=== PATIENT | male | born 1955 ===

== ENCOUNTER 2020-01-09 07:03 | Outpatient (REF) | payer OTHER, SELFPAY | END 2020-01-09 07:04 | disposition home or self-care (01) | LOC: HO.LAB 07:03 | PROVIDERS: PCP Internal Medicine; Visit Provider Internal Medicine | DX: Z20.828 Contact with and (suspected) exposure to other viral communicable diseases (principal) | CPT/HCPCS: 36415; 87635 ==

== ENCOUNTER → 2020-01-27 14:39 | Outpatient (BNVA) | payer OTHER, SELFPAY | PROVIDERS: PCP Internal Medicine; Referring Provider Internal Medicine; Visit Provider Urology | DX: Z76.89 Persons encountering health services in other specified circumstances (principal) ==

== ENCOUNTER 2020-02-03 14:24 | Outpatient (REF) | payer OTHER, SELFPAY ==
--- NOTE | 2020-02-03 14:32 | XR_ITS ---
EXAMINATION: XR CHEST CLINICAL INFORMATION: Shortness of breath COMPARISON: Chest x-ray 05/08/2019 TECHNIQUE: 2 views of the chest were obtained. FINDINGS: No significant abnormality is noted involving the heart, lungs, mediastinum, bony thorax or soft tissues. XR/XR chest 2V IMPRESSION: Unremarkable examination.
[2020-02-03 16:39] LABS: MANUAL DIFF FLAG NO
[2020-02-03 16:44] LABS: Basophils Percent Auto 0.4 % (0-2); Eosinophils Absolute Auto 0.1 X10*3/uL (0.0-0.4); Eosinophils Percent Auto 1.2 % (0-4); Hematocrit 46.3 % (42-52); Imm Gran Abs Auto 0.01 X10*3/uL (0.00-0.03); Imm Gran Pct Auto 0.2 % (0.0-0.4); Lymphocytes Absolute Auto 1.3 X10*3/uL (1.2-4.9); Lymphocytes Percent Auto 22.5 % (20-40); Mean Corpuscular HGB Conc 34.6 g/dl (31.0-36.0); Mean Corpuscular Hemoglobin 32.5 pg (27.0-33.0); Mean Corpuscular Volume 93.9 fL (80-98); Mean Platelet Volume 11.6 fL (9.4-12.4); Monocytes Absolute Auto 0.5 X10*3/uL (0.1-1.2); Monocytes Percent Auto 8.5 % (2-11); Neutrophils Absolute Auto 3.8 X10*3/uL (2.0-8.3); Neutrophils Percent Auto 67.2 % (45-73); Platelet Count 216 X10*3/uL (160-400); Red Blood Count 4.93 X10*6/uL (4.60-5.80); Red Cell Distribution Width 12.5 % (11.0-16.0); White Blood Count 5.7 X10*3/uL (4.8-10.8)
[2020-02-03 16:52] LABS: D Dimer < 200 NG/ML
[2020-02-03 17:07] LABS: Anion Gap 12 (12-20); Blood Urea Nitrogen 15 mg/dL (9-16); Calcium 8.5 mg/dL (8.4-10.2); Carbon Dioxide 30 mmol/L (22-29); Chloride 101 mmol/L (96-108); Estimated Glomerular Filt Rate > 60; Glucose Random 75 mg/dL (60-115); Potassium 4.1 mmol/l (3.3-5.1); Sodium 139 mmol/L (135-145)
[2020-02-03 17:15] LABS: B Type Natriuretic Peptide 45 pg/mL (<100); Troponin-I High Sensitivity < 3.5 ng/L (<3.5-35.0)
== END 2020-02-03 14:25 | disposition home or self-care (01) ==
LOC: HO.HMGCX 14:24
PROVIDERS: PCP Internal Medicine; Visit Provider Nurse Practitioner Family
DX: R06.02 Shortness of breath (principal); R07.9 Chest pain, unspecified
CPT/HCPCS: 36415; 71046; 80048; 83880; 84484; 85025; 85379

== ENCOUNTER 2021-10-17 12:45 | Outpatient (REF) | payer OTHER, SELFPAY ==
[2021-10-19 18:12] LABS: Lyme Abs Screen <0.90 index
== END 2021-10-17 12:46 | disposition home or self-care (01) ==
LOC: HO.HMGCLDS 12:45
PROVIDERS: PCP Internal Medicine; Visit Provider Physician Assistant
DX: Z01.89 Encounter for other specified special examinations (principal)
CPT/HCPCS: 36415; 86617; 86618; 87798; 87801

== ENCOUNTER 2022-01-15 08:09 | Outpatient (REF) | payer OTHER, SELFPAY ==
[2022-01-15 11:16] LABS: MANUAL DIFF FLAG NO
[2022-01-15 11:24] LABS: Basophils Percent Auto 0.5 % (0-2); Eosinophils Absolute Auto 0.1 X10*3/uL (0.0-0.4); Eosinophils Percent Auto 2.2 % (0-4); Hematocrit 47.9 % (42.0-52.0); Hemoglobin 16.4 g/dl (14.0-18.0); Imm Gran Abs Auto 0.01 X10*3/uL (0.00-0.03); Imm Gran Pct Auto 0.2 % (0.0-0.4); Lymphocytes Absolute Auto 1.7 X10*3/uL (1.2-4.9); Lymphocytes Percent Auto 28.9 % (20-40); Mean Corpuscular HGB Conc 34.2 g/dl (31.0-36.0); Mean Corpuscular Hemoglobin 30.8 pg (27.0-33.0); Mean Corpuscular Volume 89.9 fL (80.0-98.0); Mean Platelet Volume 11.4 fL (9.4-12.4); Monocytes Absolute Auto 0.6 X10*3/uL (0.1-1.2); Monocytes Percent Auto 9.5 % (2-11); Neutrophils Absolute Auto 3.5 x10*3/uL (2.0-8.3); Neutrophils Percent Auto 58.7 % (45-73); Platelet Count 209 X10*3/uL (160-400); Red Blood Count 5.33 X10*6/uL (4.60-5.80)
[2022-01-15 11:51] LABS: Alanine Aminotransferase 13 U/L (0-40); Alkaline Phosphatase 74 U/L (39-117); Anion Gap 13 (12-20); Aspartate Amino Transferase 18 U/L (5-37); Bilirubin Total 0.9 mg/dL (0.0-1.0); Blood Urea Nitrogen 15 mg/dL (9-16); Calcium 9.3 mg/dL (8.4-10.2); Carbon Dioxide 27 mmol/L (22-29); Chloride 107 mmol/L (96-108); Cholesterol 139 mg/dL; Estimated Glomerular Filt Rate > 60; Glucose Fasting 87 mg/dL (60-99); HDL Cholesterol 38 mg/dL; LDL Cholesterol Calculated 85 mg/dl; Potassium 4.2 mmol/L (3.3-5.1); Sodium 143 mmol/L (135-145); Total Protein 6.6 g/dL (6.5-8.0); Triglycerides 82 mg/dL
[2022-01-15 12:01] LABS: Erythrocyte Sedimentation Rate 1 MM/HR (0-15)
[2022-01-15 12:24] LABS: PSA,Total (Free>4and<10) 1.89 ng/mL (0.00-4.00)
== END 2022-01-15 08:10 | disposition home or self-care (01) ==
LOC: HO.HMGCLDS 08:09
PROVIDERS: PCP Internal Medicine; Visit Provider Internal Medicine
DX: Z00.00 Encounter for general adult medical examination without abnormal findings (principal); Z12.5 Encounter for screening for malignant neoplasm of prostate
CPT/HCPCS: 36415; 80053; 80061; 84153; 85025; 85652

== ENCOUNTER 2022-03-23 16:11 | Outpatient (REF) | payer OTHER, SELFPAY ==
--- NOTE | ~2022-03-23 | XR_ITS ---
EXAMINATION: XR hand wrist RT CLINICAL INFORMATION: Reason for Exam M25.539 - Pain in unspecified wrist COMPARISON: None. TECHNIQUE: 3 views right hand FINDINGS: Small bone fragment along the dorsal margin of the triquetrum on the lateral view consistent with triquetral avulsion fracture, exact acuity uncertain though possibly acute. No additional fracture or dislocation. Joint spaces the wrist are maintained. Mild joint space narrowing with mild subchondral cystic change and osteophyte formation at the third MCP joint. A small rounded radiolucency likely a small cyst is noted at the radial aspect of the second DIP joint as well with preserved joint space. No chondrocalcinosis or erosions. Mild soft tissue swelling about the dorsal hand and wrist. XR/XR hand wrist RT IMPRESSION: 1. Small bone fragment along the dorsal margin of the triquetrum consistent with a triquetral avulsion fracture, exact acuity uncertain though possibly acute. Correlate with focal tenderness at this location. 2. No additional fracture or dislocation.
== END 2022-03-23 16:12 | disposition home or self-care (01) ==
LOC: HO.HMGCX 16:11
PROVIDERS: PCP Internal Medicine; Visit Provider Physician Assistant
DX: M79.641 Pain in right hand (principal); M25.531 Pain in right wrist
CPT/HCPCS: 73110; 73130

== ENCOUNTER → 2022-03-26 14:24 | Outpatient (BNVA) | payer OTHER, SELFPAY | PROVIDERS: PCP Internal Medicine; Visit Provider Physician Assistant | DX: S62.111A Displaced fracture of triquetrum [cuneiform] bone, right wrist, initial encounter for closed fracture (principal) | CPT/HCPCS: 99202 ==

== ENCOUNTER 2022-04-10 12:14 | Outpatient (REF) | payer OTHER, SELFPAY ==
--- NOTE | ~2022-04-10 | XR_ITS ---
EXAMINATION: XR WRIST, RIGHT CLINICAL INFORMATION: Pain in the right wrist COMPARISON: None TECHNIQUE: PA, lateral, and oblique views of the right wrist. FINDINGS: Again noted is a small ossific fragment posterior to the dorsal aspect of the triquetrum unchanged compared to prior. Remaining bones joints and soft tissues unremarkable. XR/XR wrist RT min 3V IMPRESSION: Small ossific fragment posterior to the triquetrum unchanged compared to prior. This could reflect a small avulsion fracture of indeterminate age.
== END 2022-04-10 12:15 | disposition home or self-care (01) ==
LOC: HO.HOSX 12:14
PROVIDERS: PCP Internal Medicine; Visit Provider Orthopaedic Surgery
DX: S62.111A Displaced fracture of triquetrum [cuneiform] bone, right wrist, initial encounter for closed fracture (principal)
CPT/HCPCS: 73110; 99212

== ENCOUNTER → 2022-05-11 12:38 | Outpatient (BNVA) | payer OTHER, SELFPAY | PROVIDERS: PCP Internal Medicine; Visit Provider Physician Assistant | DX: Z13.89 Encounter for screening for other disorder (principal) ==

== ENCOUNTER 2022-06-28 14:30 | Outpatient (RCR) | payer OTHER, SELFPAY ==
--- NOTE | 2022-05-31 14:07 | MHC.OT.EP ---
[address] [phone] Occupational Therapy Plan of Care Date of Evaluation: 05/31/22 Diagnosis: Right triquetral fx Pain Location: Right mid-dorsal carpal pain Mild w/ weightbearing Pain Score: 2 Pain Scale Used: Aggravating Factors: weightbearing Alleviating Factors: none used Assessment: 66 yo right hand dominant male presents just over 10 weeks s/p fall on ice w/ resulting right triquetral fx. He was placed in brace and on follow up w/ Dr Olivo, advised to wear brace only for heavy activity, but otherwise clear for active range and light use of hand/wrist. He has done fairly well since then, had slightly decreased wrist range on follow up appt and has been referred to OT. Today on assessment, he has limited wrist flex and ext by about 10 degrees each direction and slightly impaired gross grasp (68lb vs 75lb on left) but primarily states he is having difficulty w/ weightbearing (for yoga and weight lifting) and playing the piano w/ speed and accuracy. He will benefit from brief course of OT for progression of range and strength w/ coordination and speed training for piano playing. Frequency and Duration: The patient will be seen 1x/wk for 3 weeks Short Term Goals: Right Gross Grasp >75lb Right wrist flex/ext WFL per left side Pt to report ease w/ moderate piano pieces Pt to report ease w/ piano repair work Pt to progress to downward dog yoga position w/ ease of weightbearing Treatment Plan: Therapeutic Exercise Therapeutic Activity Home Exercise Program Patient Education Edema Control ADL Training Ultrasound Paraffin Fluidotherapy MHP Cold Packs Soft Tissue Mobilization Kinesiotaping Electronically Signed By: Atiya Dupree OTR/L CHT Please Sign and return to therapist. Thank you once again for your referral.
--- NOTE | 2022-06-28 15:32 | MHC.OT.DC ---
[address] [phone] F: [phone] Occupational Therapy Discharge Note Patient Name: David Hathaway Provider: Luther Vences Diagnosis: Triquetral fx Date of Surgery: Date of Evaluation: 05/31/22 Date of Discharge: 06/28/22 Treatments to Date: 4 Cancellations to Date: No Shows to Date: Discharge Status: Achieved Goals Improved Function Independent with HEP Discharge Summary: Pt progressed himself from light activity to mod heavy with working on piano, home gym and modified Yoga exercises Good inc in wrist extension to 65 deg [employer] on right 60 lb left 65 lb Pt is indep with self management. He is not available for OT over the next two weeks I anticipate continued improvement in activity and exercise tolerance with his HEP without complications. Electronically Signed By: Giselle Gupta OT CHT CLT Reviewed/agree with student documentation: Therapist: Please Sign and return to therapist, thank you for your referral.
== END 2022-06-28 15:35 | disposition home or self-care (01) ==
LOC: HO.OT 14:30
PROVIDERS: PCP Internal Medicine; Visit Provider Physician Assistant
DX: S62.113D Displaced fracture of triquetrum [cuneiform] bone, unspecified wrist, subsequent encounter for fracture with routine healing (principal)
CPT/HCPCS: 97110; 97140; 97165

== ENCOUNTER 2023-01-02 10:19 | Outpatient (AMB) | payer MEDICARE, SELFPAY ==
[2023-01-02 10:34] VITALS: BP 118/74; PULSE 78; O2SAT 97; BMI 20.9
--- NOTE | 2023-01-02 10:34 | MHC.PC.OV ---
Vital Signs 01/02/23 10:34 Height 6 ft 2 in Weight 163 lb BMI 20.9 BP 118/74 Blood Pressure Location Lt brachial Position Sitting Pulse 78 Pulse Source Pulse Oximeter Pulse Oximetry (%) 97 Oxygen Delivery Method Room Air Intake Visit Reasons: PE Intake Note: Pt is here today for PE. Allergies No Known Allergies [No Known Allergies*] Allergy (Verified 01/02/23 10:36) Medication List - Last Reconciled 01/02/23 by Nena Walters MD No Known Home Meds Tobacco use date assessed: 01/02/23 Fall risk assessment: 1 Fall in past year Last assessed Fall Risk: 01/02/23 Dental Screening Dental Screen Date: 01/02/23 Did you have a dental visit in the last 12 months?: Yes Did you have a dental problem in the last 6 months where you did not have access to dental care?: No Was dental information given to patient?: Patient has dentist HPI PE HPI Details Pt presents for PE. Pt c/o L flank pain on and off for a few months. Pt has a history of nephrolithiasis 5 years. Pt c/o L side upper chest constriction ache worse for 1 year but had since 1998. The pain is worse when patient is trying to jog more intensely, but is present all the time. The pain is positional worse when laying on the left side. Patient denies cough or shortness of breath .night sweats or weight loss. Patient had negative stress test 10 years ago. [facility] Medical History Annual physical exam Anxiety Left nephrolithiasis Family History Father No problems noted. Mother No problems noted. Social History (Updated 01/02/23 @ 11:29 by Nena Walters MD) Household Members Other:: single, Housing: House Patient Tobacco Use Status: Never used Tobacco e-Cigarette/Vaping Use: Never Used Current occupational status: employed Current occupation: sale musical insruments/ rt hand Cognitive needs: No Hearing needs: No Vision needs: Yes Questionnaire Thrive Questionnaire Date Thrive assessed: 12/19/21 AUDIT C Alcohol Use Questionnaire (AUDIT-C) 1. How often do you have a drink containing alcohol?: Never 3. How often do you have six or more drinks on one occasion?: Never Total Score: 0 ABBIE-7 AMB Questionnaire ABBIE-7 Date ABBIE - 7 assessed: 12/19/21 Source: Developed by Drs. Neftali Vazquez, Ela Lynch, Juan Bermudez and colleagues, with an educational roe from [employer]. Review of Systems Const All systems reviewed & are unremarkable except as noted in HPI and below Reports no additional complaints Eyes Reports no additional complaints ENT Reports no additional complaints Card Reports no additional complaints Resp Reports no additional complaints GI Reports no additional complaints Reports no additional complaints Musc Reports no additional complaints Physical exam (Primary Care) Vital Signs: Last Vital Signs Pulse 78 01/02/23 10:34 BP 118/74 01/02/23 10:34 Pulse Ox 97 01/02/23 10:34 Oxygen Delivery Method Room Air 01/02/23 10:34 BMI result Body Mass Index 20.9 Tobacco/Smoking Status: Tobacco use Status Tobacco use date assessed 01/02/23 01/02/23 10:40 Patient Tobacco Use Status Never used Tobacco 01/02/23 10:40 e-Cigarette/Vaping Use Never Used 01/02/23 10:40 Thrive Assessment: Date of Thrive Assessment Date Thrive assessed 12/19/21 01/02/23 10:40 Const General: no acute distress HENMT Head: Yes normal to inspection Ears: hearing grossly normal bilaterally Face and sinus: Yes normal facial exam Eyes General: appearance normal, both eyes and all related structures Resp Effort & Inspection: normal respiratory effort Auscultation: clear to auscultation bilaterally Cardio Rhythm: regular rhythm Heart sounds: S1 normal heart sound present and S2 normal heart sound present GI Inspection: Yes normal to inspection Palpation (GI): Soft to palpation Percussion: Yes normal to percussion Auscultation: normal bowel sounds Assessment and Plan Assessment & Plan (1) Bilateral nephrolithiasis: Code(s): N20.0 - Calculus of kidney Plan: check renal US (2) Annual physical exam: Code(s): Z00.00 - Encounter for general adult medical examination without abnormal findings Plan: well balanced diet, regular exercise, return for fasting labs (3) Shortness of breath: Code(s): R06.02 - Shortness of breath Plan: check CXR and Echo (4) Chest pain: Code(s): R07.9 - Chest pain, unspecified Qualifiers: Chest pain type: unspecified Qualified Code(s): R07.9 - Chest pain, unspecified Plan: check stress test to r/o ischemia, f/u after tests Orders: Orders US renal BI Today N20.0 - Calculus of kidney Comprehensive [place]. Panel Fast Today Z00.00 - Encounter for general adult medical examination without abnormal findings Complete Blood Count Auto Diff Today Z00.00 - Encounter for general adult medical examination without abnormal findings UA w Microscopic Today Z00.00 - Encounter for general adult medical examination without abnormal findings CA stress test Today R06.02 - Shortness of breath, R07.9 - Chest pain, unspecified XR chest 2V Today R06.02 - Shortness of breath, R07.9 - Chest pain, unspecified Lipid Panel Today Z00.00 - Encounter for general adult medical examination without abnormal findings Lipoprotein A Today Z00.00 - Encounter for general adult medical examination without abnormal findings PSA,Total (Free>4and<10) Today Z00.00 - Encounter for general adult medical examination without abnormal findings CA echo transthoracic complete Today R06.02 - Shortness of breath, R07.9 - Chest pain, unspecified Coding Level of Care Code Est Pt Prev Care >65y(65678) Diagnoses Bilateral nephrolithiasis N20.0 Annual physical exam Z00.00 Shortness of breath R06.02 Chest pain, unspecified type R07.9 Chest pain type: unspecified
== END 2023-01-02 11:35 | disposition home or self-care (01) ==
PROVIDERS: PCP Internal Medicine; Visit Provider Internal Medicine
DX: Z00.00 Encounter for general adult medical examination without abnormal findings (principal); N20.0 Calculus of kidney; R06.02 Shortness of breath; R07.9 Chest pain, unspecified
CPT/HCPCS: 99397

== ENCOUNTER 2023-01-02 11:36 | Outpatient (REF) | payer MEDICARE, SELFPAY ==
--- NOTE | ~2023-01-02 | XR_ITS ---
EXAMINATION: XR CHEST CLINICAL INFORMATION: Shortness of breath. COMPARISON: 02/03/2020 TECHNIQUE: 2 views of the chest were obtained. FINDINGS: The lungs are well expanded. No focal consolidation. No pleural effusion. Cardiac silhouette is within normal limits. XR/XR chest 2V IMPRESSION: No acute abnormality.
== END 2023-01-02 11:37 | disposition home or self-care (01) ==
LOC: HO.HMGCX 11:36
PROVIDERS: PCP Internal Medicine; Visit Provider Internal Medicine
DX: R07.9 Chest pain, unspecified (principal); R06.02 Shortness of breath
CPT/HCPCS: 71046

== ENCOUNTER → 2023-02-01 06:02 | Outpatient (REF) | payer OTHER, SELFPAY ==
[2023-02-01 06:12] LABS: MANUAL DIFF FLAG NO
[2023-02-01 07:17] LABS: Basophils Percent Auto 0.5 % (0-2); Eosinophils Absolute Auto 0.1 X10*3/uL (0.0-0.4); Eosinophils Percent Auto 1.3 % (0-4); Hematocrit 47.7 % (42.0-52.0); Hemoglobin 16.5 g/dl (14.0-18.0); Imm Gran Abs Auto 0.02 X10*3/uL (0.00-0.03); Imm Gran Pct Auto 0.3 % (0.0-0.4); Lymphocytes Absolute Auto 1.9 X10*3/uL (1.2-4.9); Mean Corpuscular HGB Conc 34.6 g/dl (31.0-36.0); Mean Corpuscular Hemoglobin 30.8 pg (27.0-33.0); Mean Corpuscular Volume 89.2 fL (80.0-98.0); Mean Platelet Volume 10.6 fL (9.4-12.4); Monocytes Absolute Auto 0.8 X10*3/uL (0.1-1.2); Neutrophils Absolute Auto 4.7 x10*3/uL (2.0-8.3); Neutrophils Percent Auto 61.9 % (45-73); Platelet Count 219 X10*3/uL (160-400); Red Blood Count 5.35 X10*6/uL (4.60-5.80); Red Cell Distribution Width 12.9 % (11.0-16.0); White Blood Count 7.5 X10*3/uL (4.8-10.8)
--- NOTE | 2023-02-01 07:37 | CA_ITS ---
Transthoracic Echocardiogram Patient (Last, First, Middle): David Hathaway, Gender: Male Date of : 1955 Age: 67 Procedure Date: 02/01/2023 Procedure Type: Transthoracic Echocardiogram Location: OP Height: 187.96 cm Weight: 71.67 kg BSA: 1.97 m2 Heart Rate: bpm BP: 110 / 72 mmHg Lpn Instructor: TO Referring MD: Nena Walters MD Wan Support Specialist: Bebo Gee MD Symptoms: R06.02 - Shortness of breath Study Quality: Fair ECG Rhythm: Sinus Conclusions: - Essentially normal study Findings Left Ventricle Normal left ventricular size, thickness, and systolic function. The visually estimated ejection fraction is between 60-65%. Spectral Doppler is indicative of a normal filling pattern. Right Ventricle Normal right ventricular cavity size and systolic function. Atria Both atria are normal in size. There is no evidence of interatrial shunt. Aortic Valve Normal aortic valve structure and function. There is no aortic valve stenosis. There is no aortic valve regurgitation. Mitral Valve Normal mitral valve structure and function. There is trace mitral valve regurgitation. There is no mitral valve stenosis. Pulmonic Valve The pulmonic valve is likely normal. Tricuspid Valve Normal tricuspid valve structure. Tricuspid regurgitation envelope is inadequate for calculation of right ventricular systolic pressure. Normal right atrial pressure. Great Vessels All visible segments of the aorta are normal in size. The pulmonary artery was not well visualized. Venous The inferior vena cava is normal in size and collapses greater than 50% with inspiration. Pericardium/Pleural There is no evidence of pericardial effusion. Prior Study Comparison No significant change compared to prior study dated: 07/25/2016. Measurements 2D Linear Measurements IVSd: 0.91 0.6-0.9/0.6-1.0 cm LVIDd: 4.27 3.9-5.3/4.2-5.9 cm LVIDd Index: 2.17 2.4-3.2/2.2-3.1 cm/m2 LVIDs: 3.03 2.0-3.6 cm LVPWd: 0.76 0.7-1.1 cm LA Diam: 2.50 2.7-3.8/3.0-4.0 cm LAIDs Index: 1.27 1.5-2.3 cm/m2 LV Mass: 137.11 67-162/88-224 g LV Mass Index: 69.60 43-95/49-115 g/m2 LVOT Diam: 2.10 3.0+(-)1.3 cm 2D Systolic Function EF 4C: 61.20 >55% EF 2C: 62.30 >55% EF BiP: 62.00 >55% Mitral Valve MV Pk E: 0.54 MV PK A: 0.33 MV Decel Time: 264.00 E/A: 1.60 E'Lateral: 10.60 E'Medial: 9.25 E/E' Med: 5.90 E/E' Lat: 5.10 PHT: 77.00 MVA PHT: 2.[address] [place]: 2.06 Aortic Valve AoV Pk [place]: 0.96 AoV Mn Randolph: 0.67 AoV VTI: 0.21 AoV Pk Grad: 4.00 Aov Mn Grad: 2.00 MICHELLE Cont.VTI: 3.10 LVOT LVOT Pk [place]: 0.99 LVOT Mn Randolph: 0.65 LVOT VTI: 0.19 LVOT Pk Grad: 4.00 LVOT Mn Grad: 2.00 LVOT Diam: 2.10 LVOT Area: 3.46 Diastolic Function MV Pk E: 0.54 MV Pk A: 0.33 E/A: 1.60 E'Medial: 9.25 E/E' Med: 5.90 E' Laterial: 10.60 E/E' Lat: 5.10 Right Ventricle TAPSE (mm): 23.20 TVS' Randolph: 10.60 Tricuspid Valve RA Press: 3.00 Great Vessels Aorta Sinus of Valsalva: 3.15 2.0-3.5 cm Ao Asc: 3.00 2.1-3.4 cm Updated in Other Vendor System with Status of Final Bebo Gee MD electronically signed on 02/02/2023 10:03:47 AM with status of Final
--- NOTE | 2023-02-01 07:37 | CA_ITS ---
Acquisition Time: 2023-02-01 09:05:46 Total Exercise Time: 00:11:00 Test Indications: CP, SOB Medications: SEE H Protocol: TAZ Max HR: 166 BPM 107% of Pred: 155 BPM Max BP: 126/068 mmHG Max Work Load: 13.4 METS Exercise stress test with exercise 11 min of Taz protocol, with 1-2/10 left chest discomfort at baseline ( which is always present) which did not change with exercise, with isolated PACs and PVCs, with normotensive response to exercise, without EKG changes meeting criteria for ischemia. Test reviewed with Dr Gee Referred By: Nena Walters Overread By: HARVEY MICHELLE
[2023-02-01 07:56] LABS: Alanine Aminotransferase 13 U/L (0-40); Albumin Level 4.1 g/dL (3.5-5.0); Alkaline Phosphatase 69 U/L (39-117); Anion Gap 11 (12-20); Aspartate Amino Transferase 18 U/L (5-37); Bilirubin Total 0.8 mg/dL (0.0-1.0); Blood Urea Nitrogen 20 mg/dL (9-16); Calcium 9.6 mg/dL (8.4-10.2); Carbon Dioxide 28 mmol/L (22-29); Chloride 106 mmol/L (96-108); Cholesterol 121 mg/dL (<200); Estimated Glomerular Filt Rate > 60; Glucose Fasting 81 mg/dL (60-99); HDL Cholesterol 41 mg/dL (>40); LDL Cholesterol Calculated 68 mg/dL (<100); Potassium 3.9 mmol/L (3.3-5.1); Sodium 141 mmol/L (135-145); Triglycerides 62 mg/dL (<150)
[2023-02-01 08:07] LABS: PSA,Total (Free>4and<10) 2.53 ng/mL (0.00-4.00)
[2023-02-01 08:29] LABS: Appearance Urine Clear; Color Urine Yellow; Glucose Urine UA Negative (Negative); Leukocyte Esterase Urine Negative (Negative); Nitrite Urine Negative (Negative); PH 6.5 (5.0-9.0); Urine Blood Negative (Negative); Urine Ketones Negative (Negative); Urine Protein Negative (Neg-Trace)
[2023-02-01 08:32] LABS: Bacteria Urine None Seen (None Seen); Hyaline Casts Urine 0-2 /LPF (0-2); RBC Urine 0-2 /HPF (0-2); Squamous Epithelial Cell Urine 0-2 /HPF (0-2); WBC Urine 0-5 /HPF (0-5)
[2023-02-06 07:47] LABS: Lipoprotein A 34 nmol/L (<75)
== END ==
LOC: HO.CARD 06:02
PROVIDERS: PCP Internal Medicine; Visit Provider Internal Medicine
DX: R07.9 Chest pain, unspecified (principal); R06.02 Shortness of breath; N20.0 Calculus of kidney; Z00.00 Encounter for general adult medical examination without abnormal findings; Z12.5 Encounter for screening for malignant neoplasm of prostate
CPT/HCPCS: 36415; 80053; 80061; 81001; 83695; 84153; 85025; 93017; 93306

== ENCOUNTER → 2023-02-01 07:37 | Outpatient (BNV) | payer OTHER, SELFPAY | PROVIDERS: PCP Internal Medicine; Visit Provider Nurse Practitioner Family | DX: R06.02 Shortness of breath (principal); R07.9 Chest pain, unspecified | CPT/HCPCS: 93016; 93018; 93306 ==

== ENCOUNTER 2023-10-16 09:14 | Outpatient (AMB) | payer OTHER, SELFPAY ==
[2023-10-16 09:16] VITALS: BP 122/74; PULSE 76; TEMP 36.6; O2SAT 97; BMI 21.4
--- NOTE | 2023-10-16 09:16 | AM.OFFWIN_ITS ---
Intake Vital Signs 10/16/23 09:16 Height 6 ft 2 in Weight 166 lb 8 oz BMI 21.4 BP 122/74 Blood Pressure Location Rt brachial Position Sitting Pulse 76 Pulse Source Pulse Oximeter Temp 97.9 F Temp Source Oral Pulse Oximetry (%) 97 Oxygen Delivery Method Room Air Intake Visit Reasons: EP hands tendon pain/lumps Intake Note: pt is here for tendon on hand, with pain and feels lumps Patient Tobacco Use Status: Never used Tobacco Allergies No Known Allergies [No Known Allergies*] Allergy (Verified 10/16/23 09:18) Do you need a note to return to daycare/school/sports/work: No HPI HPI Comments History of Present Illness Details Patient is a 67-year-old male complaining of bumps on his bilateral hands, he states the bumps have developed over the last few years and are getting worse, he states his left hand is worse than his right. He states they are not necessarily pain fall however he does have pain in his left 2nd 3rd and 4th PIP that comes and goes. He thought it was more of an arthritic pain but now he is thinking it could be connected to the bumps. He denies any loss of strength or sensation or use of his hands or fingers. [facility] Medical History Annual physical exam Anxiety Left nephrolithiasis Family History Father No problems noted. Mother No problems noted. Social History (Updated 01/02/23 @ 11:29 by Nena Walters MD) Household Members Other:: single, Housing: House Patient Tobacco Use Status: Never used Tobacco e-Cigarette/Vaping Use: Never Used Current occupational status: employed Current occupation: sale musical insruments/ rt hand Cognitive needs: No Hearing needs: No Vision needs: Yes Review of Systems Const All systems reviewed & are unremarkable except as noted in HPI and below Physical Exam Vital Signs: Last Vital Signs Temp 97.9 F 10/16/23 09:16 Pulse 76 10/16/23 09:16 BP 122/74 10/16/23 09:16 Pulse Ox 97 10/16/23 09:16 Oxygen Delivery Method Room Air 10/16/23 09:16 BMI result Body Mass Index 21.4 Const General: cooperative, healthy appearing, comfortable, no acute distress and well developed Orientation/consciousness: patient oriented x3 Limitations: no limitations HEENT Head: Yes normal to inspection Eyes General: appearance normal, both eyes and all related structures Neck Neck: Yes normal visual inspection and Yes full ROM Resp Effort & Inspection: normal respiratory effort and able to speak in complete sentences Skin General skin exam: no rashes or lesions noted Neuro General: patient oriented x3 Extrem Right upper extremity: Extremity exam: right hand (5/5 strength ) Details: abnormal to inspection Details: a deformity (nodules with raised tendons/cords on palmar aspect leading to these digits) Location: of the 2nd digit, of the 3rd digit and of the 4th digit, normal capillary refill, neuromotor exam normal, neurosensory exam normal, tendon exam normal, normal ROM of fingers and no swelling; no tenderness and no unusual warmth Left upper extremity: hand (5/5 strength) Details: abnormal to inspection, normal capillary refill, neuromotor exam normal, neurosensory exam normal, tendon exam normal, normal ROM of fingers and no swelling; no tenderness and no unusual warmth Assessment & Plan Assessment & Plan (1) Dupuytren contracture of both hands: Code(s): M72.0 - Palmar fascial fibromatosis [Dupuytren] Plan: Sent referral for hand surgeon/ortho Plan see above Orders: Referrals Orthopedics Referral M72.0 - Palmar fascial fibromatosis [Dupuytren] Coding Level of Care Code Est Pt Level 3 (69261) Diagnoses Dupuytren contracture of both hands M72.0
== END 2023-10-16 10:10 | disposition home or self-care (01) ==
PROVIDERS: PCP Internal Medicine; Visit Provider Physician Assistant
DX: M72.0 Palmar fascial fibromatosis [Dupuytren] (principal)
CPT/HCPCS: 99213

== ENCOUNTER 2023-11-12 12:49 | Outpatient (AMB) | payer OTHER, SELFPAY ==
[2023-11-12 12:55] VITALS: BMI 21.4
--- NOTE | 2023-11-12 12:55 | MHC.OFFVIS ---
Vital Signs 11/12/23 12:55 Height 6 ft 2 in Weight 166 lb 8 oz BMI 21.4 Intake Visit Reasons: New Pt - B/L palmar fascial fibromatosis Intake Note: David is a 68 yo - hand dominant male who presents today with a new problem of bilateral palmar fascial fibromatosis that he first noticed about one year ago. Patient denies numbness, tingling, and locking on fingers. Patient has bumps under the skin on both hands that have grown in size, causing finger pulling on the left 3rd, 4rth, and 5th digits. Allergies No Known Allergies [No Known Allergies*] Allergy (Verified 11/12/23 12:56) HPI HPI New Pt - B/L palmar fascial fibromatosis: Details: David is a 68 year old right hand dominant man who presents with complaints of bilateral hand masses, L>R. He complains of masses in his palms, in the left at the base of his middle & ring fingers, and at the base of his right middle finger. He says these have been present for ~1 year now, and cause him some pain with gripping activities. He denies any numbness, tingling, locking, or catching. [facility] Medical History Annual physical exam Anxiety Left nephrolithiasis Family History Father No problems noted. Mother No problems noted. Social History (Updated 01/02/23 @ 11:29 by Nena Walters MD) Household Members Other:: single, Housing: House Patient Tobacco Use Status: Never used Tobacco e-Cigarette/Vaping Use: Never Used Current occupational status: employed Current occupation: sale musical insruments/ rt hand Cognitive needs: No Hearing needs: No Vision needs: Yes Review of Systems Const All systems reviewed & are unremarkable except as noted in HPI and below Physical Exam Vital Signs: BMI result Body Mass Index 21.4 Const General: no acute distress and alert Orientation/consciousness: patient oriented x3 Neuro General: patient oriented x3 Extrem Other: Evaluation of Bilateral Upper Extremity: The patient is alert, oriented, and in no acute distress Neuro: Median, Ulnar, Radial nerves motor and sensory intact and sensation is normal to the tips of all digits Vascular: Cap refill brisk ROM: He can make a fist and extend all his digits He is able to place both his hands flat on the table No locking or catching Regarding the left hand: There are Dupuytrens nodules developing into cords in line with the middle & ring fingers. There is early development of a cords in the palm, which has not yet started to extend into the fingers In regards to the right hand There is a Dupuytrens nodule in line with the middle finger. no evidence of cord or contracture Psych Appearance: grossly normal Affect: normal affect Attitude: cooperative Assessment & Plan Assessment & Plan (1) Dupuytren's disease of palm of left hand: Code(s): M72.0 - Palmar fascial fibromatosis [Dupuytren] Category: Medical (2) Dupuytren's disease of palm of right hand: Code(s): M72.0 - Palmar fascial fibromatosis [Dupuytren] Category: Medical Plan Assessment & Plan: 1. Left hand Dupuytrens nodules In line with the middle & ring fingers with an early cord forming in the palm, not yet extending into the fingers No evidence of contractures 2. Right hand Dupuytrens nodule In line with the middle finger No evidence of cords of contractures I educated him about this condition No surgical intervention warranted at this time. There are no contractures and he is still able to place both his hands flat on a table surface without difficulty. I directed him to the [email or web address] website for more information If he develops any new cords or contractures he can follow up to discuss possible surgical treatment options Otherwise he can follow up prn Scribed for Genoveva Olivo MD by radha Hein scribe, on 11/12/23 at 1:20 PM, EST. Coding Level of Care Code Est Pt Level 4 (38866) Diagnoses Dupuytren's disease of palm of left hand M72.0 Dupuytren's disease of palm of right hand M72.0
== END 2023-11-12 13:28 | disposition home or self-care (01) ==
PROVIDERS: PCP Internal Medicine; Visit Provider Orthopaedic Surgery
DX: M72.0 Palmar fascial fibromatosis [Dupuytren] (principal)
CPT/HCPCS: 99214

== ENCOUNTER → 2023-11-12 12:49 | Outpatient (BNVA) | payer OTHER, SELFPAY | PROVIDERS: PCP Internal Medicine; Visit Provider Orthopaedic Surgery | DX: M72.0 Palmar fascial fibromatosis [Dupuytren] (principal) | CPT/HCPCS: 99212 ==

== ENCOUNTER 2023-12-30 08:01 | Outpatient (AMB) | payer OTHER, SELFPAY ==
[2023-12-30 08:03] VITALS: BP 104/72; PULSE 58; TEMP 36.4; O2SAT 98; BMI 20.4
--- NOTE | 2023-12-30 08:03 | MHC.OFFWIV ---
Intake Vital Signs 12/30/23 08:03 Height 6 ft 2 in Weight 159 lb BMI 20.4 BP 104/72 Blood Pressure Location Rt brachial Position Sitting Pulse 58 Pulse Source Pulse Oximeter Temp 97.5 F Temp Source Oral Pulse Oximetry (%) 98 Oxygen Delivery Method Room Air Intake Visit Reasons: EP-lt side hernia Intake Note: pt c/o ? hernia. LT lower abdomen/inguinal. Noticed last week Patient Tobacco Use Status: Never used Tobacco Allergies No Known Allergies [No Known Allergies*] Allergy (Verified 12/30/23 08:10) Do you need a note to return to daycare/school/sports/work: No HPI HPI Comments History of Present Illness Details Patient is a 68-year-old male complaining of what he thinks is a hernia and his left inguinal area. He states he noticed it about a week ago. He states it is not painful. He tells me that he works out every other day and he states he feels a weird pressure when he is working out and that has prohibited him from going to the gym since he noticed it. He does notice when he lays down it goes away and when he stands up it is more noticeable. [facility] Medical History Annual physical exam Anxiety Left nephrolithiasis Family History Father No problems noted. Mother No problems noted. Social History (Updated 01/02/23 @ 11:29 by Nena Walters MD) Household Members Other:: single, Housing: House Patient Tobacco Use Status: Never used Tobacco e-Cigarette/Vaping Use: Never Used Current occupational status: employed Current occupation: sale musical insruments/ rt hand Cognitive needs: No Hearing needs: No Vision needs: Yes Review of Systems Const All systems reviewed & are unremarkable except as noted in HPI and below Physical Exam Vital Signs: Last Vital Signs Temp 97.5 F 12/30/23 08:03 Pulse 58 12/30/23 08:03 BP 104/72 12/30/23 08:03 Pulse Ox 98 12/30/23 08:03 Oxygen Delivery Method Room Air 12/30/23 08:03 BMI result Body Mass Index 20.4 Const General: cooperative, healthy appearing, comfortable, no acute distress and well developed Orientation/consciousness: patient oriented x3 Limitations: no limitations HEENT Head: Yes normal to inspection Ears: hearing grossly normal bilaterally General nose exam: Normal external nose present Face and sinus: Yes normal facial exam Eyes General: appearance normal, both eyes and all related structures Neck Neck: Yes normal visual inspection and Yes full ROM Resp Effort & Inspection: normal respiratory effort and able to speak in complete sentences Male General Exam: Yes hernia (left inguinal, reducible ) Skin General skin exam: no rashes or lesions noted Neuro General: patient oriented x3 Extrem General: Yes normal to inspection Assessment & Plan Assessment & Plan (1) Reducible left inguinal hernia: Code(s): K40.90 - Unilateral inguinal hernia, without obstruction or gangrene, not specified as recurrent Plan: Discussed with patient that he would need further imaging to confirm the hernia, though physical exam was pretty demonstrative. Reviewed red flag warning signs and when to go to the emergency department. I did message his PCP to ask for a further workup to hopefully review at his upcoming physical on January 09. Did tell patient this is a tight timeline and he understands it may not get done in time. Plan See above Coding Level of Care Code Est Pt Level 3 (79043) Diagnoses Reducible left inguinal hernia K40.90
== END 2023-12-30 08:46 | disposition home or self-care (01) ==
PROVIDERS: PCP Internal Medicine; Visit Provider Physician Assistant
DX: K40.90 Unilateral inguinal hernia, without obstruction or gangrene, not specified as recurrent (principal)

== ENCOUNTER → 2023-12-30 08:01 | Outpatient (BNVA) | payer OTHER, SELFPAY | PROVIDERS: PCP Internal Medicine | DX: K40.90 Unilateral inguinal hernia, without obstruction or gangrene, not specified as recurrent (principal) | CPT/HCPCS: 99212 ==

== ENCOUNTER 2024-01-01 13:03 | Outpatient (REF) | payer OTHER, SELFPAY ==
--- NOTE | ~2024-01-01 | US_ITS ---
EXAMINATION: US APPENDIX, LIMITED/FOLLOW UP CLINICAL INFORMATION: Unilateral inguinal hernia, first noticed 2 weeks ago, nontender, feels pressure on exercising, more noticeable while standing, left lower quadrant pelvic pain to be scanned while standing. COMPARISON: None available. TECHNIQUE: Targeted ultrasound images were obtained by the integrated program teacher of the area of concern as indicated by the patient in the left lower quadrant, question hernia. Number integrated program teacher, images were obtained with patient in upright position in order to better visualize. Concern. Radiologist was not in attendance. Images were later provided for interpretation. FINDINGS: There is a possible hernia in the area of concern indicated by the patient in the left lower quadrant with orifice measuring 1.6 cm. Hernia best appreciated by integrated program teacher with patient in upright position employing graded compression. US/US pelvic limited IMPRESSION: Possible hernia in the area of concern indicated by the patient in the left lower quadrant with orifice measuring 1.[address] scan recommended for further evaluation. Electronically signed by: Deanna Shirley MD 01/07/2024 01:40 PM EDT
== END 2024-01-01 13:04 | disposition home or self-care (01) ==
LOC: HO.HMGCX 13:03
PROVIDERS: PCP Internal Medicine; Visit Provider Internal Medicine
DX: K40.90 Unilateral inguinal hernia, without obstruction or gangrene, not specified as recurrent (principal)
CPT/HCPCS: 76857

== ENCOUNTER 2024-01-10 11:25 | Outpatient (AMB) | payer OTHER, SELFPAY ==
--- NOTE | 2024-01-10 11:33 | MHC.PC.OV ---
Vital Signs 01/10/24 11:34 Height 6 ft 2 in Weight 160 lb BMI 20.5 BP 106/70 Blood Pressure Location Lt brachial Position Sitting Pulse 78 Pulse Source Pulse Oximeter Pulse Oximetry (%) 98 Oxygen Delivery Method Room Air Intake Visit Reasons: Annual PE Intake Note: Pt is here today for PE. Allergies No Known Allergies [No Known Allergies*] Allergy (Verified 01/10/24 11:38) Medication List - Last Reconciled 01/10/24 by Nena Walters MD No Known Home Meds Tobacco use date assessed: 01/10/24 Fall risk assessment: No Falls in past year Last assessed Fall Risk: 01/10/24 Dental Screening Dental Screen Date: 01/10/24 Did you have a dental visit in the last 12 months?: Yes Did you have a dental problem in the last 6 months where you did not have access to dental care?: No Was dental information given to patient?: Patient has dentist HPI Annual PE HPI Details Pt presents for PE. Pt c/o LLQ bulging and discomfort for 2 weeks after lifting weights at the gym. He had an ultrasound questioning inguinal hernia and has an appointment scheduled with the surgeon next week. Patient denies nausea vomiting change in bowel habits fever chills frequency PFSH Medical History (Updated 01/10/24 @ 12:20 by Nena Walters MD) Annual physical exam Anxiety Left nephrolithiasis Surgical History (Updated 01/10/24 @ 11:39 by Nehal Guillory [facility]) No pertinent past surgical history Family History Father No problems noted. Mother No problems noted. Social History (Updated 01/02/23 @ 11:29 by Nena Walters MD) Household Members Other:: single, Housing: House Patient Tobacco Use Status: Never used Tobacco e-Cigarette/Vaping Use: Never Used service: No Current occupational status: employed Current occupation: sale musical insruments/ rt hand Cognitive needs: No Hearing needs: No Vision needs: Yes Questionnaire PHQ-9 Over the last 2 weeks, how often have you been bothered by any of the following problems? 1. Little interest or pleasure in doing things: not at all 2. Feeling down, depressed, or hopeless: not at all 3. Trouble falling or staying asleep, or sleeping too much: not at all 4. Feeling tired or having little energy: not at all 5. Poor appetite or overeating: not at all 6. Feeling bad about yourself - or that you are a failure or have let yourself or your family down: not at all 7. Trouble concentrating on things, such as reading the newspaper or watching television: not at all 8. Moving or speaking so slowly that other people could have noticed. Or the opposite - being so fidgety or restless that you have been moving around a lot more than usual: not at all 9. Thoughts that you would be better off or of hurting yourself in some way: not at all Total score: 0 Depression Screening Interpretation: Negative Depression Screening Done: Yes 49888 - PHQ-9 Billing: Yes Source: Developed by Drs. Neftali Vazquez, Ela Lynch, Juan Bermudez and colleagues, with an educational roe from [employer]. Thrive Questionnaire Date Thrive assessed: 01/06/24 I am a: Patient What is your living situation today?: I have a steady place to live Within the past 12 months, did the food you bought not last and you didn't have the money to get more?: Often true Within the past 12 months, did you worry whether your food would run out before you got money to buy more?: Often true Do you have trouble paying for medicines?: No Do you have trouble getting transportation to medical appointments?: No Do you have trouble paying your heating and electricity bill?: No Do you have trouble taking care of your child, family member or friend?: No Do you have trouble with day-to-day activities such as bathing, preparing meals, shopping, managing finances, etc.?: No Are you interested in more education?: No Please select the resources that you would like help with: None Currently or been in a relationship where the following occur: No concerns reported THRIVE Score: 2 AUDIT C Alcohol Use Questionnaire (AUDIT-C) 1. How often do you have a drink containing alcohol?: Monthly or less 2. How many drinks containing alcohol do you have on a typical day when you are drinking?: 1 or 2 3. How often do you have six or more drinks on one occasion?: Never Total Score: 1 ABBIE-7 AMB Questionnaire ABBIE-7 Date ABBIE - 7 assessed: 12/19/21 Feeling nervous, anxious, or on edge: 1 = Several days Not being able to stop or control worryin = Not at all Worrying too much about different things: 0 = Not at all Trouble relaxin = Not at all Being so restless that it is hard to sit still: 0 = Not at all Becoming easily annoyed or irritable: 0 = Not at all Feeling afraid as if something awful might happen: 0 = Not at all Total ABBIE-7 score (0-4 normal; 5-9 mild; 10-14 moderate; 15-21 severe): 1 Source: Developed by Drs. Neftali Vazquez, Ela Lynch, Juan Bermudez and colleagues, with an educational roe from [employer]. Review of Systems Const All systems reviewed & are unremarkable except as noted in HPI and below Eyes Reports no additional complaints ENT Reports no additional complaints Card Reports no additional complaints Resp Reports no additional complaints GI Reports no additional complaints Reports no additional complaints Physical exam (Primary Care) Vital Signs: Last Vital Signs Pulse 78 01/10/24 11:34 BP 106/70 01/10/24 11:34 Pulse Ox 98 01/10/24 11:34 Oxygen Delivery Method Room Air 01/10/24 11:34 BMI result Body Mass Index 20.5 Tobacco/Smoking Status: Tobacco use Status Tobacco use date assessed 01/10/24 01/10/24 11:40 Patient Tobacco Use Status Never used Tobacco 01/10/24 11:35 e-Cigarette/Vaping Use Never Used 01/10/24 11:35 PHQ-9: PHQ-9 Score PHQ-9: Total score 0 01/10/24 12:17 Depression Screening Interpretation: Negative Thrive Assessment: Date of Thrive Assessment Date Thrive assessed 01/06/24 01/10/24 11:35 Currently or been in a relationship where the following occur: No concerns reported Const General: no acute distress HENMT Head: Yes normal to inspection Ears: hearing grossly normal bilaterally Face and sinus: Yes normal facial exam Mouth: Normal oral and palatal mucosa present Eyes General: appearance normal, both eyes and all related structures Neck Neck: Yes no lymphadenopathy and Yes supple Resp Effort & Inspection: normal respiratory effort Auscultation: clear to auscultation bilaterally Cardio Rhythm: regular rhythm Heart sounds: S1 normal heart sound present and S2 normal heart sound present GI Other: There is about 5 cm by 2 cm soft tissue bulge slightly tender reducible in left lower quadrant Inspection: Yes normal to inspection Palpation (GI): Soft to palpation Percussion: Yes normal to percussion Auscultation: normal bowel sounds Coding Level of Care Code Est Pt Prev Care >65y(03126) Diagnoses Colon cancer screening Z12.11 Annual physical exam Z00. Reducible left inguinal hernia K40.90 Assessment & Plan Assessment & Plan (1) Colon cancer screening: Comment: Cologuard 01/2022 Code(s): Z12.11 - Encounter for screening for malignant neoplasm of colon Category: Medical Plan: Negative Cologuard in 2021 (2) Annual physical exam: Code(s): Z. - Encounter for general adult medical examination without abnormal findings Category: Medical Plan: Well-balanced diet regular physical activity discussed with the patient. (3) Reducible left inguinal hernia: Code(s): K40.90 - Unilateral inguinal hernia, without obstruction or gangrene, not specified as recurrent Category: Medical Plan: Patient will follow-up with surgeon next week Orders: Orders Lipid Panel Today K40.90 - Unilateral inguinal hernia, without obstruction or gangrene, not specified as recurrent, Z00.00 - Encounter for general adult medical examination without abnormal findings Comprehensive Avis. Panel Fast Today K40.90 - Unilateral inguinal hernia, without obstruction or gangrene, not specified as recurrent, Z00.00 - Encounter for general adult medical examination without abnormal findings Complete Blood Count Auto Diff Today K40.90 - Unilateral inguinal hernia, without obstruction or gangrene, not specified as recurrent, Z00.00 - Encounter for general adult medical examination without abnormal findings UA w Microscopic Today K40.90 - Unilateral inguinal hernia, without obstruction or gangrene, not specified as recurrent, Z00.00 - Encounter for general adult medical examination without abnormal findings PSA,Total (Free>4and<10) Today K40.90 - Unilateral inguinal hernia, without obstruction or gangrene, not specified as recurrent, Z00.00 - Encounter for general adult medical examination without abnormal findings
[2024-01-10 11:34] VITALS: BP 106/70; PULSE 78; O2SAT 98; BMI 20.5
== END 2024-01-10 15:12 | disposition home or self-care (01) ==
PROVIDERS: PCP Internal Medicine; Visit Provider Internal Medicine
DX: Z12.11 Encounter for screening for malignant neoplasm of colon (principal); Z00.00 Encounter for general adult medical examination without abnormal findings; K40.90 Unilateral inguinal hernia, without obstruction or gangrene, not specified as recurrent

== ENCOUNTER → 2024-01-10 11:25 | Outpatient (BNVA) | payer OTHER, SELFPAY | PROVIDERS: PCP Internal Medicine; Visit Provider Internal Medicine ==

== ENCOUNTER 2024-01-10 12:34 | Outpatient (REF) | payer OTHER, SELFPAY ==
[2024-01-10 15:58] LABS: MANUAL DIFF FLAG NO
[2024-01-10 16:01] LABS: Appearance Urine Clear; Color Urine Yellow; Glucose Urine UA Negative (Negative); Leukocyte Esterase Urine Negative (Negative); Nitrite Urine Negative (Negative); Urine Blood Negative (Negative); Urine Ketones Negative (Negative); Urine Protein Negative (Neg-Trace)
[2024-01-10 16:07] LABS: Bacteria Urine None Seen (None Seen); Hyaline Casts Urine 0-2 /LPF (0-2); RBC Urine 0-2 /HPF (0-2); Squamous Epithelial Cell Urine 0-2 /HPF (0-2); WBC Urine 0-5 /HPF (0-5)
[2024-01-10 16:17] LABS: Basophils Percent Auto 0.4 % (0-2); Eosinophils Absolute Auto 0.1 X10*3/uL (0.0-0.4); Eosinophils Percent Auto 1.2 % (0-4); Hematocrit 48.3 % (42.0-52.0); Hemoglobin 16.6 g/dl (14.0-18.0); Imm Gran Abs Auto 0.02 X10*3/uL (0.00-0.03); Imm Gran Pct Auto 0.3 % (0.0-0.4); Lymphocytes Absolute Auto 1.3 X10*3/uL (1.2-4.9); Lymphocytes Percent Auto 19.5 % (20-40); Mean Corpuscular HGB Conc 34.4 g/dl (31.0-36.0); Mean Corpuscular Hemoglobin 31.2 pg (27.0-33.0); Mean Corpuscular Volume 90.8 fL (80.0-98.0); Mean Platelet Volume 10.7 fL (9.4-12.4); Monocytes Absolute Auto 0.5 X10*3/uL (0.1-1.2); Monocytes Percent Auto 7.4 % (2-11); Neutrophils Absolute Auto 4.9 x10*3/uL (2.0-8.3); Neutrophils Percent Auto 71.2 % (45-73); Platelet Count 225 X10*3/uL (160-400); Red Blood Count 5.32 X10*6/uL (4.60-5.80); Red Cell Distribution Width 13.2 % (11.0-16.0); White Blood Count 6.9 X10*3/uL (4.8-10.8)
[2024-01-10 17:43] LABS: PSA,Total (Free>4and<10) 1.98 ng/mL (0.00-4.00)
[2024-01-10 17:48] LABS: Alanine Aminotransferase 15 U/L (0-40); Albumin Level 4.1 g/dL (3.5-5.0); Alkaline Phosphatase 71 U/L (39-117); Anion Gap 10 (12-20); Aspartate Amino Transferase 19 U/L (5-37); Bilirubin Total 0.6 mg/dL (0.0-1.0); Blood Urea Nitrogen 14 mg/dL (9-16); Calcium 9.3 mg/dL (8.4-10.2); Carbon Dioxide 28 mmol/L (22-29); Chloride 105 mmol/L (96-108); Cholesterol 145 mg/dL (<200); Estimated Glomerular Filt Rate > 60; Glucose Fasting 82 mg/dL (60-99); HDL Cholesterol 43 mg/dL (>40); LDL Cholesterol Calculated 86 mg/dL (<100); Potassium 4.4 mmol/L (3.3-5.1); Sodium 139 mmol/L (135-145); Total Protein 7.2 g/dL (6.5-8.0); Triglycerides 84 mg/dL (<150)
== END 2024-01-10 12:35 | disposition home or self-care (01) ==
LOC: HO.HMGCLDS 12:34
PROVIDERS: PCP Internal Medicine; Visit Provider Internal Medicine
DX: Z00.00 Encounter for general adult medical examination without abnormal findings (principal); K40.90 Unilateral inguinal hernia, without obstruction or gangrene, not specified as recurrent; Z12.5 Encounter for screening for malignant neoplasm of prostate
CPT/HCPCS: 36415; 80053; 80061; 81001; 84153; 85025; 96127; 99397

== ENCOUNTER 2024-01-13 08:21 | Outpatient (AMB) | payer OTHER, SELFPAY ==
--- NOTE | 2024-01-13 08:29 | A.OFFVIS_ITS ---
Vital Signs 01/13/24 08:35 Height 6 ft 2 in Weight 158 lb BMI 20.3 BP 137/75 Blood Pressure Location Rt brachial Position Sitting Pulse 60 Intake Visit Reasons: hernia Intake Note: Patient referred by pcp Dr. Walters for hernia. Present for 2-3wks. Goes to gym every day, working abdomen. Patient c/o: bulging out. Denies pain. Pelvic US: 01-01-2024. Cardiac Catheterization Technician Required: No Accompanied by: Self / Same As Patient Allergies No Known Allergies [No Known Allergies*] Allergy (Verified 01/13/24 08:35) HPI Comments Details: Patient presents with a symptomatic left inguinal hernia. He has had this roughly 3 weeks time. He is doing strenuous activities at the gym when he notes the pain and swelling of the left groin. He has no other GI issues or complaints. Otherwise tolerating a regular diet. Has normal bowel habits. Has had colonoscopies in the past. Patient was very active otherwise. Chart was reviewed and patient evaluated [facility] Medical History Annual physical exam Anxiety Left nephrolithiasis Surgical History No pertinent past surgical history Family History Father No problems noted. Mother No problems noted. Social History Household Members Other:: single, Housing: House Patient Tobacco Use Status: Never used Tobacco e-Cigarette/Vaping Use: Never Used service: No Current occupational status: employed Current occupation: sale musical insruments/ rt hand Cognitive needs: No Hearing needs: No Vision needs: Yes Physical Exam Vital Signs: Last Vital Signs Pulse 60 01/13/24 08:35 BP 137/75 01/13/24 08:35 BMI result Body Mass Index 20.3 Chest Other: Chest breath sounds bilaterally, HS 1 in 2 GI Other: Patient was examined both supine and standing with Valsalva. Thin abdomen. Benign. Right groin negative. Genitalia within normal limits. Reducible left inguinal hernia. Assessment & Plan Assessment & Plan (1) Reducible left inguinal hernia: Code(s): K40.90 - Unilateral inguinal hernia, without obstruction or gangrene, not spec ified as recurrent Category: Surgical Plan Patient was like to have this repaired. Risks, benefits, alternatives of open left inguinal hernia repair with mesh were reviewed with the patient and included but not limited to bleeding, infection, recurrence, numbness, pain, scarring the patient wished to proceed. All q uestions answered. Arrangements were made for this. Coding Level of Care Code New Pt Level 5 (55849) Diagnoses Reducible left inguinal hernia K40.90
[2024-01-13 08:35] VITALS: BP 137/75; PULSE 60; BMI 20.3
== END 2024-01-13 09:08 | disposition home or self-care (01) ==
PROVIDERS: PCP Internal Medicine; Visit Provider Surgery
DX: K40.90 Unilateral inguinal hernia, without obstruction or gangrene, not specified as recurrent (principal)
CPT/HCPCS: 99204

== ENCOUNTER → 2024-01-13 08:21 | Outpatient (BNVA) | payer OTHER, SELFPAY | PROVIDERS: PCP Internal Medicine; Visit Provider Surgery | DX: K40.90 Unilateral inguinal hernia, without obstruction or gangrene, not specified as recurrent (principal) | CPT/HCPCS: 99202 ==

== ENCOUNTER → 2024-02-18 09:59 | Outpatient (REF) | payer OTHER, SELFPAY ==
--- NOTE | 2024-02-18 10:09 | ECG_ITS ---
Test Reason : preop Blood Pressure : / mmHG Vent. Rate : 068 BPM Atrial Rate : 068 BPM P-R Int : 166 ms QRS Dur : 088 ms QT Int : 366 ms P-R-T Axes : 083 078 075 degrees QTc Int : 389 ms Normal sinus rhythm Normal ECG No previous ECGs available Referred By: Nena Walters Electronically Signed By:Papa Nicholas
== END ==
LOC: HO.CARD 09:59
PROVIDERS: PCP Internal Medicine; Visit Provider Internal Medicine
DX: Z01.818 Encounter for other preprocedural examination (principal); K40.90 Unilateral inguinal hernia, without obstruction or gangrene, not specified as recurrent
CPT/HCPCS: 93005; 99212

== ENCOUNTER → 2024-02-18 10:09 | Outpatient (BNV) | payer OTHER, SELFPAY | PROVIDERS: PCP Internal Medicine; Visit Provider Internal Medicine Cardiovascular Disease | DX: K40.90 Unilateral inguinal hernia, without obstruction or gangrene, not specified as recurrent (principal) | CPT/HCPCS: 93010 ==

== ENCOUNTER 2024-02-18 11:20 | Outpatient (AMB) | payer OTHER, SELFPAY ==
--- NOTE | 2024-02-18 13:04 | AM.OFFWIN_ITS ---
Intake Vital Signs 3 02/18/24 13:12 Weight 160 lb 2 oz BP 112/70 Blood Pressure Location Lt brachial Position Sitting Intake Visit Reasons: EP Stepped on a nail on the RT foot [phone] Patient Tobacco Use Status: Never used Tobacco Allergies No Known Allergies [No Known Allergies*] Allergy (Verified 01/13/24 08:35) HPI HPI Comments 2 History of Present Illness0 Details 68 y/o male patient who presents to the walk in clinic with c/o right foot pain and swelling since yesterday. Reports stepping on the Nail at home accidentally, minimal bleeding but now noticed some swelling and mild tenderness. He is able to walk on his foot with no pain. [facility] Medical History Annual physical exam Anxiety Left nephrolithiasis Surgical History No pertinent past surgical history Family History Father No problems noted. Mother No problems noted. Social History Household Members Other:: single, Housing: House Patient Tobacco Use Status: Never used Tobacco e-Cigarette/Vaping Use: Never Used service: No Current occupational status: employed Current occupation: sale musical insruments/ rt hand Cognitive needs: No Hearing needs: No Vision needs: Yes Review of Systems Const All systems reviewed & are unremarkable except as noted in HPI and below Physical Exam Vital Signs: Last Vital Signs BP 112/70 02/18/24 13:12 Extrem Right lower extremity: foot (Small puncture wound plantar, dry mild tenderness no swelling. ) Details: normal capillary refill, tenderness, toes with normal ROM and no edema Left lower extremity: normal to inspection Ankle/foot/toe images: 2 1. Small puncture wound plantar, dry mild tenderness no swelling. Assessment & Plan Assessment & Plan (1) Puncture wound: Code(s): T14.8XXA - Other injury of unspecified body region, initial encounter Plan: No signs of infection, wound clean and dry. Advised to soak foot in warm water and salt 20 minutes on/off Acetaminophen for pain relief. TDAP uptodate. Coding Level of Care Code Est Pt Level 3 (68014) Diagnoses Puncture wound T14.8XXA Time Spent (min) 15
[2024-02-18 13:12] VITALS: BP 112/70
== END 2024-02-18 14:18 | disposition home or self-care (01) ==
PROVIDERS: PCP Internal Medicine; Visit Provider Nurse Practitioner Family
DX: S91.331A Puncture wound without foreign body, right foot, initial encounter (principal)

== ENCOUNTER 2025-01-27 10:22 | Outpatient (AMB) | payer OTHER, SELFPAY ==
--- NOTE | 2025-01-27 10:23 | MHC.PC.OV ---
Vital Signs 01/27/25 10:24 Height 6 ft 2 in Weight 169 lb BMI 21.7 BP 110/70 Blood Pressure Location Lt brachial Position Sitting Respiration 17 Pulse 81 Pulse Source Pulse Oximeter Pulse Oximetry (%) 96 Oxygen Delivery Method Room Air Intake Visit Reasons: Annual PE - see comments Intake Note: Pt is here today for PE. Allergies No Known Allergies (No Known Allergies*) Allergy (Verified 01/27/25 10:25) Medication List - Last Reconciled 01/27/25 by Nena Walters MD No Known Home Meds Tobacco use date assessed: 01/27/25 Fall risk assessment: No Falls in past year Last assessed Fall Risk: 01/27/25 Dental Screening Dental Screen Date: 01/27/25 Did you have a dental visit in the last 12 months?: Yes Did you have a dental problem in the last 6 months where you did not have access to dental care?: No Was dental information given to patient?: Patient has dentist HPI Annual PE - see comments HPI Details Pt presents for PE. [facility] Medical History (Updated 01/27/25 @ 11:14 by Nena Walters MD) Annual physical exam Anxiety Left nephrolithiasis Surgical History (Updated 01/27/25 @ 11:13 by Nena Walters MD) History of hernia surgery No pertinent past surgical history Family History Father No problems noted. Mother No problems noted. 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 1. Little interest or pleasure in doing things: not at all 2. Feeling down, depressed, or hopeless: not at all 3. Trouble falling or staying asleep, or sleeping too much: not at all 4. Feeling tired or having little energy: not at all 5. Poor appetite or overeating: not at all 6. Feeling bad about yourself - or that you are a failure or have let yourself or your family down: not at all 7. Trouble concentrating on things, such as reading the newspaper or watching television: not at all 8. Moving or speaking so slowly that other people could have noticed. Or the opposite - being so fidgety or restless that you have been moving around a lot more than usual: not at all 9. Thoughts that you would be better off or of hurting yourself in some way: not at all Total score: 0 Depression Screening Interpretation: Negative Depression Screening Done: Yes 89809 - PHQ-9 Billing: Yes Source: Developed by Drs. Neftali Vazquez, Ela Lynch, Juan Bermudez and colleagues, with an educational roe from [employer]. Thrive Questionnaire Date Thrive assessed: 01/27/25 I am a: Patient What is your living situation today?: I have a steady place to live Within the past 12 months, did the food you bought not last and you didn't have the money to get more?: Never true Within the past 12 months, did you worry whether your food would run out before you got money to buy more?: Never true Do you have trouble paying for medicines?: No Do you have trouble getting transportation to medical appointments?: No Do you have trouble paying your heating and electricity bill?: No Do you have trouble taking care of your child, family member or friend?: No Do you have trouble with day-to-day activities such as bathing, preparing meals, shopping, managing finances, etc.?: No Are you currently unemployed and looking for a job?: No Are you interested in more education?: No Please select the resources that you would like help with: None THRIVE Score: 0 AUDIT C Alcohol Use Questionnaire (AUDIT-C) 1. How often do you have a drink containing alcohol?: Monthly or less 2. How many drinks containing alcohol do you have on a typical day when you are drinking?: 1 or 2 3. How often do you have six or more drinks on one occasion?: Never Total Score: 1 ABBIE-7 AMB Questionnaire ABBIE-7 Date ABBIE - 7 assessed: 01/27/25 Feeling nervous, anxious, or on edge: 1 = Several days Not being able to stop or control worryin = Not at all Worrying too much about different things: 0 = Not at all Trouble relaxin = Not at all Being so restless that it is hard to sit still: 0 = Not at all Becoming easily annoyed or irritable: 0 = Not at all Feeling afraid as if something awful might happen: 0 = Not at all Total ABBIE-7 score (0-4 normal; 5-9 mild; 10-14 moderate; 15-21 severe): 1 Source: Developed by Drs. Neftali Vazquez, Ela Lynch, Juan Bermudez and colleagues, with an educational roe from [employer]. ABBIE-7 Assessment Billing ABBIE-7 Assessment Tool: ABBIE-7 Assessment 10987 Review of Systems Const All systems reviewed & are unremarkable except as noted in HPI and below Eyes Reports no additional complaints ENT Reports no additional complaints Card Reports no additional complaints Resp Reports no additional complaints GI Reports no additional complaints Reports no additional complaints Physical exam (Primary Care) Vital Signs: Last Vital Signs Pulse 81 01/27/25 10:24 Resp 17 01/27/25 10:24 BP 110/70 01/27/25 10:24 Pulse Ox 96 01/27/25 10:24 Oxygen Delivery Method Room Air 01/27/25 10:24 BMI result Body Mass Index 21.7 Tobacco/Smoking Status: Tobacco use Status Tobacco use date assessed 01/27/25 01/27/25 10:30 Patient Tobacco Use Status Never used Tobacco 01/27/25 10:24 e-Cigarette/Vaping Use Never Used 01/27/25 10:24 PHQ-9: PHQ-9 Score PHQ-9: Total score 0 01/27/25 10:41 Depression Screening Interpretation: Negative Thrive Assessment: Date of Thrive Assessment Date Thrive assessed 01/27/25 01/27/25 10:24 Const General: no acute distress HENMT Head: Yes normal to inspection General nose exam: Normal external nose present Face and sinus: Yes normal facial exam Mouth: Normal oral and palatal mucosa present Throat: Yes posterior oropharynx normal Eyes General: appearance normal, both eyes and all related structures Neck Neck: Yes no lymphadenopathy and Yes supple Resp Effort & Inspection: normal respiratory effort Auscultation: clear to auscultation bilaterally Cardio Rhythm: regular rhythm Heart sounds: S1 normal heart sound present and S2 normal heart sound present GI Inspection: Yes normal to inspection Palpation (GI): Soft to palpation Percussion: Yes normal to percussion Auscultation: normal bowel sounds Extrem General: Yes no clubbing, cyanosis or edema Coding Level of Care Code Est Pt Prev Care >65y(65565) Diagnoses Annual physical exam Z00. Vitamin B 12 deficiency E53.8 Additional Codes ABBIE-7 Assessment Billing - ABBIE-7 Assessment Tool: ABBIE-7 Assessment 23547 ([id number]) PHQ-9 - 97389 - PHQ-9 Billing: Yes ([id number]) Assessment & Plan Assessment & Plan (1) Annual physical exam: Code(s): Z00.00 - Encounter for general adult medical examination without abnormal findings Category: Medical Plan: well balanced diet, regular exercise discussed, pt will have labs today (2) Vitamin B 12 deficiency: Code(s): E53.8 - Deficiency of other specified B group vitamins Category: Medical Plan: check the level Orders: Orders Comprehensive [place]. Panel Fast Today Z00.00 - Encounter for general adult medical examination without abnormal findings Complete Blood Count Auto Diff Today Z00.00 - Encounter for general adult medical examination without abnormal findings Lipid Panel Today Z00.00 - Encounter for general adult medical examination without abnormal findings UA w Microscopic Today Z00.00 - Encounter for general adult medical examination without abnormal findings Vitamin B12 Today E53.8 - Deficiency of other specified B group vitamins PSA,Total (Free>4and<10) Today Z00.00 - Encounter for general adult medical examination without abnormal findings
[2025-01-27 10:24] VITALS: BP 110/70; PULSE 81; RESP 17; O2SAT 96; BMI 21.7
== END 2025-01-27 11:26 | disposition home or self-care (01) ==
LOC: HO.HMCC 10:22
PROVIDERS: PCP Internal Medicine; Visit Provider Internal Medicine
DX: Z00.00 Encounter for general adult medical examination without abnormal findings (principal); E53.8 Deficiency of other specified B group vitamins

== ENCOUNTER 2025-01-27 10:22 | Outpatient (REF) | payer OTHER, SELFPAY ==
[2025-01-27 13:02] LABS: MANUAL DIFF FLAG NO
[2025-01-27 13:13] LABS: Appearance Urine Clear; Glucose Urine UA Negative (Negative); PH 7.5 (5.0-9.0); Specific Gravity - Urine <= 1.005 (1.005-1.025)
[2025-01-27 13:18] LABS: Hematocrit 49.4 % (42.0-52.0); Hemoglobin 16.6 g/dl (14.0-18.0); Imm Gran Abs Auto 0.02 X10*3/uL (0.00-0.03); Imm Gran Pct Auto 0.3 % (0.0-0.4); Lymphocytes Absolute Auto 1.3 X10*3/uL (1.2-4.9); Mean Corpuscular HGB Conc 33.6 g/dl (31.0-36.0); Mean Corpuscular Hemoglobin 29.0 pg (27.0-33.0); Mean Corpuscular Volume 86.4 fL (80.0-98.0); NRBC Abs Auto 0.000 X10*3/uL (0.0-0.012); NRBC Pct Auto 0.0 /100WBC (0.0-0.2); Platelet Count 284 X10*3/uL (160-400); Red Blood Count 5.72 X10*6/uL (4.60-5.80); White Blood Count 7.6 X10*3/uL (4.8-10.8)
[2025-01-27 13:54] LABS: Alanine Aminotransferase 16 U/L (0-40); Albumin Level 4.3 g/dL (3.5-5.0); Alkaline Phosphatase 98 U/L (39-117); Anion Gap 8 (12-20); Aspartate Amino Transferase 24 U/L (5-37); Blood Urea Nitrogen 14 mg/dL (9-16); Calcium 9.7 mg/dL (8.4-10.2); Carbon Dioxide 28 mmol/L (22-29); Chloride 108 mmol/L (96-108); Cholesterol 153 mg/dL (<200); Estimated Glomerular Filt Rate > 60; HDL Cholesterol 48 mg/dL (>40); Potassium 4.4 mmol/L (3.3-5.1); Sodium 140 mmol/L (135-145); Total Protein 8.0 g/dL (6.5-8.0); Triglycerides 73 mg/dL (<150)
[2025-01-27 14:38] LABS: PSA,Total (Free>4and<10) 2.69 ng/mL (0.00-4.00)
[2025-01-27 14:45] LABS: Vitamin B12 645 pg/mL (200-900)
--- OUTSIDE RECORDS SUMMARY | 2025-01-27 15:48 | XMS_ITS | Clinical Summary ---
Author Organization [facility] Address [address] [place] [id number] Phone Care Team Providers Care [employer] Operations Intelligence Chief Name Role Phone Justin Covington MD Unavailable [phone] Nena Walters MD Primary Care Provider [phone] Allergies Active Allergy Reactions Criticality Noted Date Comments Bee Pollen 02/03/2024 House Dust 02/03/2024 Medications No known medications Active Problems No known active problems Resolved Problems Problem Noted Date Diagnosed Date Resolved Date Left inguinal hernia 02/03/2024 025 Family History Medical History Relation Comments CV disease Father 2 Hypertension Father 2 Cancer Mother 2 Relation Status Comments Father 1 Father 2 Mother 1 Mother 2 Social History Tobacco Use Types Packs/Day Years Used Date Smoking Tobacco: Never Smokeless Tobacco: Never Tobacco Cessation:Counseling Given: Not Answered Education Answer Date Recorded Are you interested in more education? Not on chay e 01/23/2024 Are you concerned about learning? Not on file 01/23/2024 No 01/23/2024 No 01/23/2024 Digital Access Answer Date Recorded No 01/23/2024 No 01/23/2024 Reliable internet access at home? Not on file 01/23/2024 Device with a working camera? Not on file Sex and Gender Information Value Date Recorded Sex Assigned at Not on file Legal Sex Male 9:51 PM EDT Gender Identity Not on file Sexual Orientation Not on file Last Filed Vital Signs Vital Sign Reading Time Taken Comments Blood Pressure 115/77 02/03/2024 1:25 PM EDT Pulse 67 12/23/2014 8:46 AM EDT Temperature - - Respiratory Rate - - Oxygen Saturation - - Inhaled Oxygen Concentration - - Weight 68.5 kg (151 lb) 02/03/2024 1:25 PM EDT Height 188 cm (6' 2 ) 02/03/2024 1:25 PM EDT Body Mass Index 19.39 02/03/2024 1:25 PM EDT Plan of Treatment Health Maintenance Due Date Last Done Comments Adult Td,Tdap Booster 1957 LIPID PANEL 1957 DEPRESSION SCREENING 1969 HEPATITIS C SCREENING 10/19/1975 COLOGUARD 2002 COLONOSCOPY 2002 COLORECTAL CANCER SCREENING 2002 FIT TEST 2002 FOBT 2002 SIGMOIDOSCOPY 2002 VIRTUAL COLONOSCOPY 2002 PNEUMOCOCCAL VACCINES (50+ y ears) (1 of 1 - PCV) 10/19/2007 ZOSTER VACCINES (1 of 2) 10/19/2007 INFLUENZA VACCINE (#1) 2024 COVID-19 VACCINE (1 - 2024-2 6 season) 2024 RSV VACCINE (1 - 1-dose 75+ series) 2032 SMOKING STATUS SCREENING (On ce After 26 Yrs) Completed 04/21/2024 HEPATITIS A VACCINES Aged Out No long er eligible based on patient's age to complete this topic HIB VACCINES Aged Out No longer eligi ble based on patient's age to complete this topic MENINGOCOCCAL VACCINES (ACWY) Aged Out No longer eligible based on patient's age to complete this topic MENINGOCOCCAL VACCINES (B) Aged Out N o longer eligible based on patient's age to complete this topic Medical Devices Not on file [place] [address] [facility] MEDICARE REPLACEMENT [facility]AC[facility] [address] [employer] [address] [place] [address] [facility]IC[facility] [place] [address] [facility] MEDICARE REPLACEMENT [facility] MEDICARE REPLACEMENT [facility] MEDIC[facility] REPLACEMENT Care Teams Aoc Operations Intelligence Chief Relationship Specialty Start Date End Date Nena Walters MD [address] [place] [address] PCP - General 01/23/24 Justin Covington MD [email or web address] Historical LMR Provider 01/24/17 Additional Source Comments The information contained in this document represents components of the legal health record. It is not the complete legal health record.[facility]
== END 2025-01-27 10:23 | disposition home or self-care (01) ==
LOC: HO.HMGCLDS 10:22
PROVIDERS: PCP Internal Medicine; Visit Provider Internal Medicine
DX: Z00.00 Encounter for general adult medical examination without abnormal findings (principal); E53.8 Deficiency of other specified B group vitamins
CPT/HCPCS: 36415; 80053; 80061; 81001; 82607; 84153; 85025; 96127; 99397